=== PATIENT | female | born 1980 | race American Indian/Alaskan Native ===

== ENCOUNTER 2020-01-23 09:45 | Observation (INO) | payer OTHER ==
[2020-01-23] MEDS ORDERED: ASPIRIN 325 MG TAB PO ONE (09:56)
[2020-01-23 10:49] LABS: Basophils % (Auto) 0.3 % (0.0-1.8); Eosinophils # (Auto) 0.3 K/mm3 (0.0-0.4); Eosinophils % (Auto) 3.3 % (0.0-4.3); Hematocrit 38.6 % (30.3-42.9); Hemoglobin 12.9 gm/dl (10.1-14.3); Lymphocytes # (Auto) 0.8 K/mm3 (1.2-5.4); Lymphocytes % (Auto) 9.2 % (13.4-35.0); Mean Corpuscular HGB Conc 33 % (30-34); Mean Corpuscular Volume 88 fl (79-97); Monocytes # (Auto) 0.7 K/mm3 (0.0-0.8); Monocytes % (Auto) 8.3 % (0.0-7.3); Platelet Count 210 K/mm3 (140-440); Red Blood Count 4.41 M/mm3 (3.65-5.03); Red Cell Distribution Width 16.1 % (13.2-15.2)
[2020-01-23] MEDS ORDERED: ONDANSETRON 4 MG/2 ML INJ IV ONE (10:52)
[2020-01-23] MEDS ORDERED: NITROGLYCERIN 2% OINT 1 GM TP ONE (10:52)
[2020-01-23] MEDS ORDERED: MORPHINE 4 MG/1 ML INJ IV ONE (10:52)
--- NOTE | 2020-01-23 10:58 | Emergency Department Report ---
HPI - General Chief Complaint: Chest Pain Time Seen by Provider: 01/23/20 10:42 - HPI HPI: Room 26 The patient is a 39-year-old female present with a chief complaint of chest pain. The patient states she developed bilateral upper extremity numbness and then tightness in her chest. The patient states her tightness is associated with shortness of breath but she denies nausea/vomiting or diaphoresis. Patient currently gives her chest pain a score of 5/10. Patient admits to cocaine use approximately 6 hours ago. Patient states she's never had a heart cath ED Past Medical Hx - Past Medical History Previous Medical History?: Yes Hx Seizures: Yes Additional medical history: fibroids - Surgical History Past Surgical History?: Yes Additional Surgical History: ectopic - Family History Family history: no significant - Social History Smoking Status: Never Smoker Substance Use Type: Alcohol (Occasional), Cocaine - Medications Home Medications: Home Medications Medication Instructions Recorded Confirmed Last Taken Type Ibuprofen [Motrin] 800 mg PO Q8H PRN #20 tablet 02/23/14 Unknown Rx ED Review of Systems ROS: Stated complaint: SOB/CP Other details as noted in HPI Constitutional: diaphoresis Eyes: denies: eye pain ENT: denies: throat pain Respiratory: shortness of breath Cardiovascular: chest pain Endocrine: no symptoms reported Gastrointestinal: denies: nausea, vomiting Genitourinary: denies: dysuria Musculoskeletal: denies: back pain Neurological: denies: headache Physical Exam - Physical Exam Vital Signs: Vital Signs 01/23/20 09:55 Temperature 97.6 F Pulse Rate 85 Respiratory 18 Rate Blood Pressure 151/91 [Right] O2 Sat by Pulse 96 Oximetry Physical Exam: GENERAL: The patient is well-developed well-nourished female lying on stretcher not appearing to be in acute distress. [] HEENT: Normocephalic. Atraumatic. Extraocular motions are intact. Patient has moist mucous membranes. NECK: Supple. Trachea midline CHEST/LUNGS: Clear to auscultation. There is no respiratory distress noted. HEART/CARDIOVASCULAR: Regular. There is no tachycardia. There is no gallop rub or murmur. ABDOMEN: Abdomen is soft, nontender. Patient has normal bowel sounds. There is no abdominal distention. SKIN: There is no rash. There is no edema. There is no diaphoresis. NEURO: The patient is awake, alert, and oriented. The patient is cooperative. The patient has normal speech MUSCULOSKELETAL: There is no evidence of acute injury. ED Course Vital Signs 01/23/20 09:55 Temperature 97.6 F Pulse Rate 85 Respiratory 18 Rate Blood Pressure 151/91 [Right] O2 Sat by Pulse 96 Oximetry ED Medical Decision Making - Lab Data Result diagrams: 01/23/20 10:31 01/23/20 10:31 - EKG Data -: EKG Interpreted by Me EKG shows normal: sinus rhythm Rate: normal - EKG Data When compared to previous EKG there are: previous EKG unavailable Interpretation: nonspecific ST-T wave ginny (T wave inversions in leads III, aVF, V3) - Radiology Data Radiology results: report reviewed (Chest x-ray), image reviewed (Chest x-ray) interpreted by me: Chest x-ray-no focal infiltrates, no pneumothorax [facility] [address] [place] [address] XRay Report Signed Patient: LIANNE SILVERMAN MR# : [id number] : 1980 Acct:[id number] Age/Sex: 39 / F ADM Date: 01/23/20 Loc: ED Attending Dr: Ordering Physician: MARSHA SANTIAGO MD Date of Service: 01/23/20 Procedure(s): XR chest routine 2V Accession Number(s): [id number] cc: MARSHA SANTIAGO MD Fluoro Time In Minutes: CHEST 2 VIEWS INDICATION / CLINICAL INFORMATION: Chest Pain. COMPARISON: One view of the chest from 02/23/2014. FINDINGS: SUPPORT DEVICES: None. HEART / MEDIASTINUM: No significant abnormality. LUNGS / PLEURA: No significant pulmonary or pleural abnormality. No pneumothorax. ADDITIONAL FINDINGS: No significant additional findings. IMPRESSION: 1. No acute abnormality of the chest. Signer Name: Berry Ramos MD Signed: 01/23/2020 10:59 AM Workstation Name: [id number] Transcribed By: [place] Dictated By: Berry Ramos MD Electronically Authenticated By: Berry Ramos MD Signed Date/Time: 01/23/20 1059 DD/ 1058 TD/TT: - Differential Diagnosis ACS, pericarditis, GERD Critical care attestation.: If time is entered above; I have spent that time in minutes in the direct care of this critically ill patient, excluding procedure time. ED Disposition Clinical Impression: Chest pain, Cocaine abuse Disposition: DC09 OP ADMIT IP TO THIS HOSP Is pt being admited?: Yes Does the pt Need Aspirin: Yes Condition: Fair Instructions: Chest Pain (ED) Time of Disposition: 11:11 (Hospitalist paged)
--- NOTE | 2020-01-23 11:03 | XRay Report ---
CHEST 2 VIEWS INDICATION / CLINICAL INFORMATION: Chest Pain. COMPARISON: One view of the chest from 02/23/2014. FINDINGS: SUPPORT DEVICES: None. HEART / MEDIASTINUM: No significant abnormality. LUNGS / PLEURA: No significant pulmonary or pleural abnormality. No pneumothorax. ADDITIONAL FINDINGS: No significant additional findings. IMPRESSION: 1. No acute abnormality of the chest. Signer Name: Berry Ramos MD Signed: 01/23/2020 10:59 AM Workstation Name: [id number]
[2020-01-23 11:04] LABS: BUN/Creatinine Ratio 6; Blood Urea Nitrogen 4 mg/dL (7-17); Calcium 9.5 mg/dL (8.4-10.2); Hemolysis Index 11
[2020-01-23] MEDS ORDERED: ONDANSETRON 4 MG/2 ML INJ IV PRN (11:28)
[2020-01-23] MEDS ORDERED: NITROGLYCERIN 0.4 MG TAB SUBL SL PRN (11:28)
[2020-01-23] MEDS ORDERED: ACETAMINOPHEN 325 MG TAB PO PRN (11:28)
[2020-01-23] MEDS ORDERED: NALOXONE 0.4 MG/1 ML INJ IV PRN (11:28)
[2020-01-23] MEDS ORDERED: ALBUTEROL 2.5 MG/3 ML NEBU IH PRN (11:28)
--- NOTE | 2020-01-23 11:28 | History and Physical Report ---
History of Present Illness Date of examination: 01/23/20 Date of admission: 01/23/20 Chief complaint: Seizure, chest pain History of present illness: Patient is a 39-year-old female with no significant past medical history except for recurrent seizures. Who presents to the ED with complaint of chest pain that started following use of cocaine. Patient also reports that she has been having a seizure a week for the last 3 weeks has not followed with any physician unsure why she has not. On arrival to the hospital she she was noted or reported to have bilateral upper extremity paresthesias. She continues to have this intermittent jerking episode. Almost fidgety nature. She denies any blurry vision bowel or urinary incontinence. And no injury to the tongue or oral cavity. Past History Past Medical History: other (Seizures) Past Surgical History: No surgical history Social history: other (Cocaine use) Family history: no significant family history Medications and Allergies Allergies Allergy/AdvReac Type Severity Reaction Status Date / Time No Known Allergies Allergy Unverified 02/23/14 10:18 Home Medications Medication Instructions Recorded Confirmed Last Taken Type Iron,Carbonyl [Iron Chews] 65 mg PO QDAY 01/23/20 01/23/20 Unknown History Review of Systems All systems: negative Cardiovascular: chest pain, no orthopnea, no palpitations, no rapid/irregular heart beat, no edema Respiratory: no cough with sputum, no hemoptysis, no shortness of breath, no dyspnea on exertion Neurological: parathesias, numbness Exam - Physical Exam Narrative exam: VITAL SIGNS: Reviewed. GENERAL: The patient appears normally developed, fidgety vital signs as documented. HEAD: No signs of head trauma. EYES: Pupils are equal. Extraocular motions intact. EARS: Hearing grossly intact. MOUTH: Oropharynx is normal. NECK: No adenopathy, no JVD. CHEST: Chest with clear breath sounds bilaterally. No wheezes, rales, or rhonchi. CARDIAC: Regular rate and rhythm. S1 and S2, without murmurs, gallops, or rubs. VASCULAR: No Edema. Peripheral pulses normal and equal in all extremities. ABDOMEN: Soft, non tender and non distended. No rebound or guarding, and no masses palpated. Bowel Sounds normal. MUSCULOSKELETAL: Good range of motion of all major joints. Extremities without clubbing, cyanosis or edema. NEUROLOGIC EXAM: Alert and oriented x 3 disorganized upper extremity tremors. No focal sensory or strength deficits. Speech normal. Follows commands. PSYCHIATRIC: Mood normal. SKIN: detail exam as documented in skin assessment - Constitutional Vitals: Temp Pulse Resp BP Pulse Ox 98.4 F 105 H 18 130/99 96 01/23/20 10:53 01/23/20 11:10 01/23/20 10:52 01/23/20 11:10 01/23/20 10:52 HEART Score - HEART Score Troponin: Troponin T < 0.010 ng/mL (0.00-0.029) 01/23/20 10:31 Results - Labs CBC & Chem 7: 01/23/20 10:31 01/23/20 10:31 Labs: Laboratory Last Values WBC 8.7 K/mm3 (4.5-11.0) 01/23/20 10:31 RBC 4.41 M/mm3 (3.65-5.03) 01/23/20 10:31 Hgb 12.9 gm/dl (10.1-14.3) 01/23/20 10:31 Hct 38.6 % (30.3-42.9) 01/23/20 10:31 MCV 88 fl (79-97) 01/23/20 10:31 MCH 29 pg (28-32) 01/23/20 10:31 MCHC 33 % (30-34) 01/23/20 10:31 RDW 16.1 % (13.2-15.2) H 01/23/20 10:31 Plt Count 210 K/mm3 (140-440) 01/23/20 10:31 Lymph % (Auto) 9.2 % (13.4-35.0) L 01/23/20 10:31 [place] % (Auto) 8.3 % (0.0-7.3) H 01/23/20 10:31 Eos % (Auto) 3.3 % (0.0-4.3) 01/23/20 10:31 Baso % (Auto) 0.3 % (0.0-1.8) 01/23/20 10:31 Lymph # 0.8 K/mm3 (1.2-5.4) L 01/23/20 10:31 [place] # 0.7 K/mm3 (0.0-0.8) 05/15/20 10:31 Eos # 0.3 K/mm3 (0.0-0.4) 01/23/20 10:31 Baso # 0.0 K/mm3 (0.0-0.1) 01/23/20 10:31 Seg Neutrophils % 78.9 % (40.0-70.0) H 01/23/20 10:31 Seg Neutrophils # 6.8 K/mm3 (1.8-7.7) 01/23/20 10:31 Sodium 137 mmol/L (137-145) 01/23/20 10:31 Potassium 3.6 mmol/L (3.6-5.0) 01/23/20 10:31 Chloride 99.6 mmol/L (98-107) 01/23/20 10:31 Carbon Dioxide 23 mmol/L (22-30) 01/23/20 10:31 Anion Gap 18 mmol/L 01/23/20 10:31 BUN 4 mg/dL (7-17) L 01/23/20 10:31 Creatinine 0.7 mg/dL (0.7-1.2) 01/23/20 10:31 Estimated GFR > 60 ml/min 01/23/20 10:31 BUN/Creatinine Ratio 6 % 01/23/20 10:31 Glucose 123 mg/dL (65-100) H 01/23/20 10:31 Calcium 9.5 mg/dL (8.4-10.2) 01/23/20 10:31 Troponin T < 0.010 ng/mL (0.00-0.029) 01/23/20 10:31 Ham/IV: IV Catheter Type [Left INT / Saline Lock Antecubital] Assessment and Plan Assessment and plan: Patient is a 39-year-old female with no significant past medical history except for recurrent seizures. Who presents to the ED with complaint of chest pain that started following use of cocaine. Patient also reports that she has been having a seizure a week for the last 3 weeks has not followed with any physician unsure why she has not. On arrival to the hospital she she was noted or reported to have bilateral upper extremity paresthesias. She continues to have this intermittent jerking episode. Almost fidgety nature. She denies any blurry vision bowel or urinary incontinence. And no injury to the tongue or oral cavity. Atypical chest pain likely secondary to substance abuse Substance abuse prefers cocaine Seizure disorder with no postictal state Bilateral upper extremity paresthesias now resolved Mild rhabdomyolysis secondary to seizure Plan Admit to telemetry Obtain cardiology and neurology consult CT of the head Seizure precautions Ativan as needed for seizure DVT and GI prophylaxis Extensive counseling provided to the patient on need to quit substance abuse 50 minutes spent on counseling patient verbalized understanding. Anticipate discharge in a.m. if remains stable Advance Directives: Yes Plan of care discussed with patient/family: Yes
--- NOTE | 2020-01-23 13:02 | Consultation ---
History of Present Illness Consult date: 01/23/20 Consult reason: chest pain History of present illness: This is a 39-year old woman with no prior cardiac history who presents to the emergency department with chest pain. Patient reports chest pain following the use of cocaine. Currently, chest pain free. She denies unusual shortness of breath. Laboratory study shows normal troponin level. Chest x-ray is benign. ECG is sinus rhythm with non-specific T abnormalities. Medications and Allergies Allergies Allergy/AdvReac Type Severity Reaction Status Date / Time No Known Allergies Allergy Unverified 02/23/14 10:18 Home Medications Medication Instructions Recorded Confirmed Last Taken Type Ibuprofen [Motrin] 800 mg PO Q8H PRN #20 tablet 02/23/14 Unknown Rx Active Meds: Active Medications Acetaminophen (Tylenol) 650 mg PO Q4H PRN PRN Reason: Pain MILD(1-3)/Fever >100.5/GONZALES Albuterol (Proventil) 2.5 mg IH Q4HRT PRN PRN Reason: Shortness Of Breath Aspirin (Baby Aspirin) 81 mg PO QDAY [facility] Atorvastatin Calcium (Lipitor) 40 mg PO QHS [facility] Naloxone HCl (Naloxone) 0.1 mg IV Q2MIN PRN PRN Reason: Res Rate </= 8 or 02 SAT < 92% Nitroglycerin (Nitrostat) 0.4 mg SL Q5M PRN PRN Reason: Chest Pain Ondansetron HCl (Zofran) 4 mg IV Q4H PRN PRN Reason: Nausea And Vomiting Sodium Chloride (Sodium Chloride Flush Syringe 10 Ml) 10 ml IV BID [facility] Sodium Chloride (Sodium Chloride Flush Syringe 10 Ml) 10 ml IV PRN PRN PRN Reason: LINE FLUSH Physical Examination Vital Signs Temp Pulse Resp BP Pulse Ox 97.6 F 85 18 151/91 96 01/23/20 09:55 01/23/20 09:55 01/23/20 09:55 01/23/20 09:55 01/23/20 09:55 General appearance: no acute distress HEENT: Positive: PERRL Cardiac: Positive: Reg Rate and Rhythm Results 01/23/20 10:31 01/23/20 10:31 CBC 01/23/20 Range/Units 10:31 WBC 8.7 (4.5-11.0) K/mm3 RBC 4.41 (3.65-5.03) M/mm3 Hgb 12.9 (10.1-14.3) gm/dl Hct 38.6 (30.3-42.9) % Plt Count 210 (140-440) K/mm3 Lymph # 0.8 L (1.2-5.4) K/mm3 [place] # 0.7 (0.0-0.8) K/mm3 Eos # 0.3 (0.0-0.4) K/mm3 Baso # 0.0 (0.0-0.1) K/mm3 Comprehensive Metabolic Panel 01/23/20 Range/Units 10:31 Sodium 137 (137-145) mmol/L Potassium 3.6 (3.6-5.0) mmol/L Chloride 99.6 (98-107) mmol/L Carbon Dioxide 23 (22-30) mmol/L BUN 4 L (7-17) mg/dL Creatinine 0.7 (0.7-1.2) mg/dL Glucose 123 H (65-100) mg/dL Calcium 9.5 (8.4-10.2) mg/dL Assessment and Plan - Patient Problems (1) Chest pain Current Visit: Yes Status: Acute
[2020-01-23] MEDS ORDERED: LORazepam 2 MG/ML VIAL IV PRN (13:16)
--- NOTE | 2020-01-23 17:45 | Cat Scan Report ---
CT head/brain wo con INDICATION / CLINICAL INFORMATION: 39 years Female; seizure. TECHNIQUE: Routine CT head without contrast. All CT scans at this location are performed using CT dos e reduction for ALARA by means of automated exposure control. COMPARISON: None. FINDINGS: BRAIN / INTRACRANIAL CONTENTS: No acute hemorrhage, mass effect, midline shift, hydrocephalus, or acu te, large territorial infarct. No chronic infarct or atrophy appreciated. No significant white matter abnormality. CRANIOCERVICAL JUNCTION: No significant abnormality. ORBITS: No significant abnormality of visualized orbits. SINUSES / MASTOIDS: There is a focal dehiscence of the lamina papyracea on the right, which may be re lated to prior trauma or could be congenital. Moderate opacification of the ethmoids noted on the rig ht and mild on the left. ADDITIONAL FINDINGS: Prominent soft tissue is seen in the roof the nasopharynx, presumably related to reactive adenoidal tissue. Please clinically correlate. IMPRESSION: 1. No focal mass, hemorrhage, hydrocephalus, or acute, large territorial infarct. Signer Name: Wolf Hair MD, III Signed: 01/23/2020 5:41 PM Workstation Name: [id number]
[2020-01-23 20:25] LABS: Creatine Kinase MB 1.5 ng/mL (0.0-4.0)
--- NOTE | 2020-01-24 02:35 | Consultation ---
History of Present Illness Consult date: 01/24/20 Reason for Consult: Seizure Chief complaint: Seizure History of present illness: Patient is a 39 y/o woman w/ a h/o seizures, uterine fibroids, and cocaine abuse. She presented on 01/23/20 w/ symptoms of chest tightness, and paresthesias on Rt. side. She states that she had used cocaine about 6 hours prior to symptom onset. She had seizures in childhood, and was on AEDs, however stopped taking AEDs as a teenager. She states that she has had one seizure per week for the last month. Seizures are described as nocturnal, occurring only during sleep. Patient wakes to find that she has lost bowel and bladder control during sleep, and has also bitten her tongue. She denies having any seizures while awake. Past History Past Medical History: other (Seizures) Past Surgical History: No surgical history Social history: other (Cocaine use) Family history: no significant family history Medications and Allergies Allergies Allergy/AdvReac Type Severity Reaction Status Date / Time iodine Allergy Unknown Verified 01/23/20 18:01 Home Medications Medication Instructions Recorded Confirmed Last Taken Type Iron,Carbonyl [Iron Chews] 65 mg PO QDAY 01/23/20 01/23/20 Unknown History Active Meds: Active Medications Acetaminophen (Tylenol) 650 mg PO Q4H PRN PRN Reason: Pain MILD(1-3)/Fever >100.5/GONZALES Albuterol (Proventil) 2.5 mg IH Q4HRT PRN PRN Reason: Shortness Of Breath Aspirin (Baby Aspirin) 81 mg PO QDAY [facility] Atorvastatin Calcium (Lipitor) 40 mg PO QHS [facility] Last Admin: 01/23/20 22:29 Dose: 40 mg Documented by: Lorazepam (Ativan) 2 mg IV Q4H PRN PRN Reason: Seizures Naloxone HCl (Naloxone) 0.1 mg IV Q2MIN PRN PRN Reason: Res Rate </= 8 or 02 SAT < 92% Nitroglycerin (Nitrostat) 0.4 mg SL Q5M PRN PRN Reason: Chest Pain Ondansetron HCl (Zofran) 4 mg IV Q4H PRN PRN Reason: Nausea And Vomiting Sodium Chloride (Sodium Chloride Flush Syringe 10 Ml) 10 ml IV BID [facility] Last Admin: 01/23/20 22:29 Dose: 10 ml Documented by: Sodium Chloride (Sodium Chloride Flush Syringe 10 Ml) 10 ml IV PRN PRN PRN Reason: LINE FLUSH Review of Systems All systems: negative Cardiovascular: chest pain Neurological: weakness, parathesias, seizures Physical Examination - Vital Signs Vital Signs: Vital Signs Temp Pulse Resp BP Pulse Ox 97.6 F 85 18 151/91 96 01/23/20 09:55 01/23/20 09:55 01/23/20 09:55 01/23/20 09:55 01/23/20 09:55 - Physical Exam Narrative exam: Patient is alert, awake, oriented x4, follows complex commands. No dysarthria or aphasia noted. EOMI, VFF, tongue midline, decreased on right to LT, no facial weakness noted. 3/5 in RUE/RLE, 5/5 in LUE/LLE. Decreased on right to light touch. Bilaterally intact to FTN and HTS. Exam limited due to telemedicine encounter. - Constitutional General appearance: comfortable - Level of Consciousness 1a. Level of Consciousness: alert/keenly responsive - LOC Questions 1b. LOC Questions: answers both correctly - LOC Command 1c. LOC Commands: performs tasks correctly - Best Gaze 2. Best Gaze: normal - Visual 3. Visual: no visual loss - Facial Palsy 4. Facial Palsy: normal symmetrical movement - Motor Arm 5a. Motor Arm Left: no drift 5b. Motor Arm Right: drift - Motor Leg 6a. Motor Leg Left: no drift 6b. Motor Leg Right: drift - Limb Ataxia 7. Limb Ataxia: absent - Sensory 8. Sensory: mild/moderate sensory loss - Best Language 9. Best Language: no aphasia - Dysarthria 10. Dysarthria: normal - Extinction and Inattention 11. Extinction/Inattention: no abnormality - Scoring Total Score: 3 Stroke Severity: Minor Stroke Results - Laboratory Findings CBC and BMP: 01/23/20 10:31 01/23/20 10:31 Abnormal Lab Findings: Abnormal Labs 01/23/20 01/23/20 01/23/20 10:31 10:31 12:57 RDW 16.1 H Lymph % (Auto) 9.2 L [place] % (Auto) 8.3 H Lymph # 0.8 L Seg Neutrophils % 78.9 H BUN 4 L Glucose 123 H Total Creatine Kinase 278 H 01/23/20 19:51 RDW Lymph % (Auto) [place] % (Auto) Lymph # Seg Neutrophils % BUN Glucose Total Creatine Kinase 232 H Assessment and Plan Patient is a 39 y/o woman w/ a h/o seizures, uterine fibroids, and cocaine abuse, who p/w chest tightness, Rt. sided weakness/numbness, and recent seizures. According to the patient's clinical findings, it is possible that she has had an ischemic stroke. Additionally, patient has likely had seizures recently, as she has a h/o seizures as a teenager, and now has recurrence of seizures during sleep, characterized as loss of bowel/bladder control and tongue biting during sleep. Etiology of stroke may be related to cocaine use. Plan: 1. Possible Stroke: - MRI brain: pending - CTA head/neck: pending. - CT head: no acute abnormality - Echo: EF 60-65%, LA size normal, bubble study not performed. - Cont. ASA - Cont. statin. LDL goal <70 - Telemetry monitoring while in house - PT/OT/ST - DVT Ppx: Recommend lovenox 2. Hypertension: - Recommend BP goal of <220/120 to allow for permissive HTN for first 24-48 hours. Can target normotension after that. 3. Seizures: - Recommend for patient to start keppra 750mg BID. Discussed risks/benefits of this medication, and patient agreed to taking this. - Discussed with patient regarding no driving until cleared by DMV/DPS. Patient understood and accepted this. - Further discussed seizure precautions. 4. Chest pain/tightness: - Likely in setting of cocaine use. - Cardiology following. - Will sign off, as I am not covering neurology service over the weekend. Please consult neurologist covering the service over the weekend for further neurologic monitoring and management. Thank you for allowing me to take part in the care of this patient. Tod Dugan MD Neurology This clinical encounter was provided via live telemedicine portal. Consultative service was provided for neurology to support local providers. The Acute Teleneurology team should be contacted with any neurologic worsening or clinical changes, new test results, or new patient history that is reported to or discovered by the local team following completion of the teleneurology consultation, specifically that which has the potential to impact the consultative recommendations. Patient/Family was informed the Neurology Consult would happen via TeleHealth consult by way of interactive audio and video telecommunications and consented to receiving care in this manner. Due to the potential for life-threatening deterioration due to underlying neurologic illness, and limited resources available for patient care, telemedicine was used as means of patient care. Telemedicine consultation is limited in the extent of physical exam that can be virtually provided. Time spent evaluating patient includes time for face to face visit via telemedicine, review of medical records, imaging studies and discussion of findings with providers, the patient and/or family.
[2020-01-24 05:31] LABS: Basophils % (Auto) 0.5 % (0.0-1.8); Eosinophils # (Auto) 0.5 K/mm3 (0.0-0.4); Eosinophils % (Auto) 7.3 % (0.0-4.3); Hematocrit 36.6 % (30.3-42.9); Hemoglobin 12.1 gm/dl (10.1-14.3); Lymphocytes # (Auto) 1.5 K/mm3 (1.2-5.4); Lymphocytes % (Auto) 23.9 % (13.4-35.0); Mean Corpuscular HGB Conc 33 % (30-34); Mean Corpuscular Volume 88 fl (79-97); Monocytes # (Auto) 0.6 K/mm3 (0.0-0.8); Monocytes % (Auto) 9.3 % (0.0-7.3); Platelet Count 196 K/mm3 (140-440); Red Blood Count 4.17 M/mm3 (3.65-5.03); Red Cell Distribution Width 15.9 % (13.2-15.2)
[2020-01-24 05:53] LABS: BUN/Creatinine Ratio 8; Blood Urea Nitrogen 6 mg/dL (7-17); Calcium 8.5 mg/dL (8.4-10.2); Hemolysis Index 62
[2020-01-24] MEDS ORDERED: ASPIRIN 81 MG TAB CHEW PO SCH (10:00)
[2020-01-24] MEDS ORDERED: levETIRAcetam 500 MG TAB PO SCH (10:00)
--- NOTE | 2020-01-24 10:06 | Progress Note ---
Assessment and Plan - Patient Problems (1) Atypical chest pain Current Visit: Yes Status: Acute Plan to address problem: Patient presented with atypical chest pain and nonspecific T wave changes on the ECG. Echocardiogram shows normal left ventricular systolic function. Recommend cessation of drug and substance abuse. We will order a predischarge exercise stress test. Subjective Date of service: 01/24/20 Interval history: Patient is comfortable, no cardiac complaints. Objective Vital Signs Temp Pulse Resp BP Pulse Ox 01/24/20 04:11 98.9 F 76 18 122/75 99 01/24/20 02:33 94 H 01/23/20 23:39 98.3 F 83 18 130/85 100 01/23/20 21:40 80 01/23/20 21:11 98.8 F 70 18 134/85 85 01/23/20 20:50 15 101/62 99 01/23/20 20:40 16 101/62 98 01/23/20 20:32 84 01/23/20 20:30 9 L 101/62 98 01/23/20 20:00 14 101/62 99 01/23/20 19:30 12 120/91 99 01/23/20 19:00 16 107/71 98 01/23/20 17:30 15 98 01/23/20 17:06 99 01/23/20 16:30 98 01/23/20 16:00 125/97 99 01/23/20 15:30 73 14 124/80 97 01/23/20 15:00 71 15 124/80 99 01/23/20 14:30 98 01/23/20 14:00 97 01/23/20 13:30 97 01/23/20 13:00 120/64 100 01/23/20 12:30 93 H 16 120/64 96 01/23/20 12:15 88 17 120/72 96 01/23/20 12:00 98 H 15 115/68 99 01/23/20 11:45 104 H 18 150/79 95 01/23/20 11:30 80 18 140/79 97 01/23/20 11:16 91 H 20 144/84 96 01/23/20 11:10 105 H 130/99 01/23/20 11:00 106 H 17 130/99 95 01/23/20 10:53 98.4 F 01/23/20 10:52 18 96 01/23/20 10:49 96 H 15 99 - Physical Examination General: No Apparent Distress HEENT: Positive: PERRL Neck: Positive: neck supple Cardiac: Positive: Reg Rate and Rhythm Lungs: Positive: Decreased Breath Sounds Neuro: Positive: Grossly Intact Abdomen: Positive: Soft Skin: Positive: Clear Extremities: Absent: edema - Labs and Meds Cardiac Enzymes 01/23/20 01/23/20 Range/Units 12:57 19:51 CK-MB (CK-2) 2.0 1.5 (0.0-4.0) ng/mL CBC 01/23/20 01/24/20 Range/Units 10:31 04:25 WBC 8.7 6.3 (4.5-11.0) K/mm3 RBC 4.41 4.17 (3.65-5.03) M/mm3 Hgb 12.9 12.1 (10.1-14.3) gm/dl Hct 38.6 36.6 (30.3-42.9) % Plt Count 210 196 (140-440) K/mm3 Lymph # 0.8 L 1.5 (1.2-5.4) K/mm3 [place] # 0.7 0.6 (0.0-0.8) K/mm3 Eos # 0.3 0.5 H (0.0-0.4) K/mm3 Baso # 0.0 0.0 (0.0-0.1) K/mm3 Comprehensive Metabolic Panel 01/23/20 01/24/20 Range/Units 10:31 04:25 Sodium 137 138 (137-145) mmol/L Potassium 3.6 3.9 (3.6-5.0) mmol/L Chloride 99.6 101.1 (98-107) mmol/L Carbon Dioxide 23 26 (22-30) mmol/L BUN 4 L 6 L (7-17) mg/dL Creatinine 0.7 0.8 (0.7-1.2) mg/dL Glucose 123 H 104 H (65-100) mg/dL Calcium 9.5 8.5 (8.4-10.2) mg/dL
[2020-01-24 10:15] VITALS: BP 129/71
--- NOTE | 2020-01-24 10:41 | Progress Note ---
Hospitalist Physical - Constitutional Vitals: Temp Pulse Resp BP Pulse Ox 98.3 F 85 18 129/71 95 01/24/20 07:39 01/24/20 08:00 01/24/20 07:39 01/24/20 07:39 01/24/20 07:39 General appearance: Present: no acute distress HEART Score - HEART Score Troponin: Troponin T < 0.010 ng/mL (0.00-0.029) 01/23/20 15:34 Results - Labs CBC & Chem 7: 01/24/20 04:25 01/24/20 04:25 Labs: Laboratory Last Values WBC 6.3 K/mm3 (4.5-11.0) 01/24/20 04:25 RBC 4.17 M/mm3 (3.65-5.03) 01/24/20 04:25 Hgb 12.1 gm/dl (10.1-14.3) 01/24/20 04:25 Hct 36.6 % (30.3-42.9) 01/24/20 04:25 MCV 88 fl (79-97) 01/24/20 04:25 MCH 29 pg (28-32) 01/24/20 04:25 MCHC 33 % (30-34) 01/24/20 04:25 RDW 15.9 % (13.2-15.2) H 01/24/20 04:25 Plt Count 196 K/mm3 (140-440) 01/24/20 04:25 Lymph % (Auto) 23.9 % (13.4-35.0) 01/24/20 04:25 Hale % (Auto) 9.3 % (0.0-7.3) H 01/24/20 04:25 Eos % (Auto) 7.3 % (0.0-4.3) H 01/24/20 04:25 Baso % (Auto) 0.5 % (0.0-1.8) 01/24/20 04:25 Lymph # 1.5 K/mm3 (1.2-5.4) 01/24/20 04:25 Hale # 0.6 K/mm3 (0.0-0.8) 01/24/20 04:25 Eos # 0.5 K/mm3 (0.0-0.4) H 01/24/20 04:25 Baso # 0.0 K/mm3 (0.0-0.1) 01/24/20 04:25 Seg Neutrophils % 59.0 % (40.0-70.0) 01/24/20 04:25 Seg Neutrophils # 3.7 K/mm3 (1.8-7.7) 01/24/20 04:25 Sodium 138 mmol/L (137-145) 01/24/20 04:25 Potassium 3.9 mmol/L (3.6-5.0) 01/24/20 04:25 Chloride 101.1 mmol/L (98-107) 01/24/20 04:25 Carbon Dioxide 26 mmol/L (22-30) 01/24/20 04:25 Anion Gap 15 mmol/L 01/24/20 04:25 BUN 6 mg/dL (7-17) L 01/24/20 04:25 Creatinine 0.8 mg/dL (0.7-1.2) 01/24/20 04:25 Estimated GFR > 60 ml/min 01/24/20 04:25 BUN/Creatinine Ratio 8 % 01/24/20 04:25 Glucose 104 mg/dL (65-100) H 01/24/20 04:25 Calcium 8.5 mg/dL (8.4-10.2) 01/24/20 04:25 Total Creatine Kinase 232 units/L (30-135) H 01/23/20 19:51 CK-MB (CK-2) 1.5 ng/mL (0.0-4.0) 01/23/20 19:51 CK-MB (CK-2) Rel Index 0.6 (0-4) 01/23/20 19:51 Troponin T < 0.010 ng/mL (0.00-0.029) 01/23/20 15:34 Nasal Screen MRSA (PCR) Negative (Negative) 01/24/20 Unknown - Diagnostic Impressions Diagnostic Impressions: Echocardiogram 01/23/20 11:31 Transthoracic Echocardiogram Indication: Chest pain BP: 120/64 HR: 65 Conclusions *Global left ventricular systolic function is normal. *The estimated ejection fraction is 60-65%. *Borderline, mild concentric left ventricular hypertrophy is observed. *There is trace of aortic regurgitation. *There is no significant mitral regurgitation. *There is trace tricuspid regurgitation. *There is borderline, mild pulmonary hypertension with PASP 29. Findings Left Ventricle: The left ventricular chamber size is normal. Mild concentric left ventricular hypertrophy is observed. Global left ventricular systolic function is normal. The estimated ejection fraction is 60-65%. Left Atrium: The left atrial chamber size is normal. Right Ventricle: The right ventricular cavity size is normal. The right ventricular global systolic function is normal. Right Atrium: The right atrial cavity size is normal. Aortic Valve: The aortic valve is trileaflet. There is trace of aortic regurgitation. There is no evidence of aortic stenosis. Mitral Valve: The mitral valve leaflets appear normal. There is no evidence of mitral regurgitation. There is no evidence of mitral stenosis. Tricuspid Valve: There is trace tricuspid regurgitation. The right ventricular systolic pressure is calculated at 29 mmHg. There is evidence of borderline pulmonary hypertension. Pulmonic Valve: There is trace pulmonic regurgitation. Pericardium: There is no pericardial effusion. Aorta: There is no dilatation of the ascending aorta. There is no dilatation of the aortic root. Venous: The inferior vena cava appears normal in size. Measurements Chambers 2D Name Value Normal Range IVSd (2D) 0.9 cm (0.6 - 1.1) LVPWd (2D) 0.86 cm (0.6 - 1.1) LVIDd (2D) 3.96 cm (3.7 - 5.6) LVIDs (2D) 2.37 cm (2 - 3.8) LV FS (2D) 40.21 % - EF Teichholz (2D) 71.48 % - Ao root diameter (2D) 2.63 cm (2 - 3.7) Volumes/Mass Name Value Normal Range LA ESV SP 4CH (A/L) 33.29 ml - LA ESV SP 2CH (A/L) 31.14 ml - LA ESV BP (A/L) 32.7 ml - LA ESV BP (A/L) index 19.7 ml/m2 - LA ESV SP 4CH (MOD) 31.66 ml - LA ESV SP 2CH (MOD) 28.91 ml - LA ESV BP (MOD) 30.61 ml - LA ESV BP (MOD) index 18.44 ml/m2 - Diastolic/Systolic Function Name Value Normal Range MV E-wave Vmax 1.05 m/sec - MV deceleration time 186.43 msec - MV A-wave Vmax 0.8 m/sec - MV E:A ratio 1.33 ratio - Aortic Valve Name Value Normal Range AV Vmax 1.36 m/sec - AV VTI 28.02 cm - AV peak gradient 7.38 mmHg - AV mean gradient 3.65 mmHg - LVOT diameter 1.77 cm - LVOT Vmax 1.27 m/sec - LVOT VTI 29.46 cm - LVOT peak gradient 6.46 mmHg - LVOT mean gradient 3.27 mmHg - SV LVOT 72.24 ml - BISHNU (continuity Vmax) 2.3 cm2 - BISHNU (continuity VTI) 2.58 cm2 - Tricuspid Valve Name Value Normal Range TR Vmax 2.53 m/sec - TR peak gradient 26 mmHg - RAP 3 mmHg - RVSP 29 mmHg - Pulmonic Valve/Qp:Qs Name Value Normal Range PV Vmax 0.95 m/sec - PV peak gradient 3.59 mmHg - NV end-diastolic Vmax 0.58 m/sec - PV acceleration time 140.82 msec - Ham/IV: Voiding Method Toilet IV Catheter Type [Left INT / Saline Lock Antecubital] Active Medications - Current Medications Current Medications: Generic Name Dose Route Start Last Admin Trade Name Freq PRN Reason Stop Dose Admin Acetaminophen 650 mg 01/23/20 11:28 Tylenol PO Q4H PRN Pain MILD(1-3)/Fever >100.5/GONZALES Albuterol 2.5 mg 01/23/20 11:28 Proventil IH Q4HRT PRN Shortness Of Breath Aspirin 81 mg 01/24/20 10:00 01/24/20 10:15 Baby Aspirin PO 81 mg QDAY EDGAR Administration Atorvastatin Calcium 40 mg 01/23/20 22:00 01/23/20 22:29 Lipitor PO 40 mg QHS EDGAR Administration Levetiracetam 750 mg 01/24/20 10:00 01/24/20 10:14 Keppra PO 750 mg BID EDGAR Administration Lorazepam 2 mg 01/23/20 13:16 Ativan IV Q4H PRN Seizures Naloxone HCl 0.1 mg 01/23/20 11:28 Naloxone IV Q2MIN PRN Res Rate </= 8 or 02 SAT < 92% Nitroglycerin 0.4 mg 01/23/20 11:28 Nitrostat SL Q5M PRN Chest Pain Ondansetron HCl 4 mg 01/23/20 11:28 Zofran IV Q4H PRN Nausea And Vomiting Sodium Chloride 10 ml 01/23/20 22:00 01/24/20 10:15 Sodium Chloride Flush Syringe 10 Ml IV 10 ml BID EDGAR Administration Sodium Chloride 10 ml 01/23/20 11:28 Sodium Chloride Flush Syringe 10 Ml IV PRN PRN LINE FLUSH
--- NOTE | 2020-01-24 10:50 | Discharge Summary ---
Providers - Providers Date of Admission: 01/23/20 11:13 Attending physician: JOHN GUY MD 01/23/20 Consult to Cardiac Rehabilitation [CONS] Routine Reason For Exam: Phase I 01/23/20 11:28 Consult to Cardiology [CONS] Routine Consulting Provider: ROSEANN WU Reason For Exam: CHEST PAIN, COCAIN 01/23/20 11:34 Consult to Physician [CONS] Routine Comment: Consulting Provider: GENNA NOLAN Physician Instructions: Reason For Exam: SEIZURE Primary care physician: [employer] Hospitalization Reason for admission: chest pain Condition: Stable Hospital course: Patient is a 39-year-old female with no significant past medical history except for recurrent seizures. Who presents to the ED with complaint of chest pain t hat started following use of cocaine. Patient also reports that she has been having a seizure a week for the last 3 weeks has not followed with any physician unsure why she has not. On arrival to the hospital she she was noted or reported to have bilateral upper extremity paresthesias. She continues to have this intermittent jerking episode. Almost fidgety nature. She denies any blurry vision bowel or urinary incontinence. And no injury to the tongue or oral cavity. Patient was seen by cardiology and underwent stress test after seizure disorder was resolved. Stress test was unremarkable. Patient was also counseled on substance abuse and he verbalized understanding. She is stable for discharge at this time Atypical chest pain likely secondary to substance abuse Substance abuse prefers cocaine Seizure disorder with no postictal state Bilateral upper extremity paresthesias now resolved Mild rhabdomyolysis secondary to seizure Disposition: DC-01 TO HOME OR SELFCARE Time spent for discharge: 35 mins Core Measure Documentation - Palliative Care Palliative Care/ Comfort Measures: Not Applicable - Core Measures Any of the following diagnoses?: none Exam - Physical Exam Narrative exam: VITAL SIGNS: Reviewed. GENERAL: The patient appears normally developed, fidgety vital signs as documented. HEAD: No signs of head trauma. EYES: Pupils are equal. Extraocular motions intact. EARS: Hearing grossly intact. MOUTH: Oropharynx is normal. NECK: No adenopathy, no JVD. CHEST: Chest with clear breath sounds bilaterally. No wheezes, rales, or rhonchi. CARDIAC: Regular rate and rhythm. S1 and S2, without murmurs, gallops, or rubs. VASCULAR: No Edema. Peripheral pulses normal and equal in all extremities. ABDOMEN: Soft, non tender and non distended. No rebound or guarding, and no masses palpated. Bowel Sounds normal. MUSCULOSKELETAL: Good range of motion of all major joints. Extremities without clubbing, cyanosis or edema. NEUROLOGIC EXAM: Alert and oriented x 3 disorganized upper extremity tremors. No focal sensory or strength deficits. Speech normal. Follows commands. PSYCHIATRIC: Mood normal. SKIN: detail exam as documented in skin assessment - Constitutional Vitals: Temp Pulse Resp BP Pulse Ox 98.3 F 85 18 129/71 95 01/24/20 07:39 01/24/20 08:00 01/24/20 07:39 01/24/20 07:39 01/24/20 07:39 Plan Activity: no driving until cleared by PCP (DUE TO SEIZURE AND ACCORDING TO [place] LAW), fall precautions Diet: low fat, low cholesterol Special Instructions: record daily weights Follow up with: PRIMARY CAREMD [Primary Care Provider] - 7 Days ROSEANN WU MD [Staff Physician] - 3 Days (MUST FOLLOW FOR STRESS TEST. NO STERNEOUS ACTIVITY TILL STRESS TEST IS DONE NO COCAIN) CARMEN BRYANT MD [Staff Physician] - 7 Days Forms: Discharge Signature Page Prescriptions: AtorvaSTATin [Lipitor] 40 mg PO QHS #30 tablet Aspirin [Aspirin BABY CHEW TAB] 81 mg PO QDAY #30 tab.chew levETIRAcetam [Keppra TAB] 750 mg PO BID #60 tablet
--- NOTE | 2020-01-24 13:35 | Magnetic Resonance Report ---
MR brain wo con INDICATION / CLINICAL INFORMATION: 39 years Female; right sided weakness/numbness. TECHNIQUE: Multiplanar, multisequence MR images of the brain were obtained. Some motion artifact COMPARISON: CT - 01/23/2020 FINDINGS: BRAIN / INTRACRANIAL CONTENTS: No acute hemorrhage, mass effect, midline shift, hydrocephalus, or acu te, large territorial infarct. No chronic infarct or atrophy. No significant white matter abnormality . CRANIOCERVICAL JUNCTION: No significant abnormality. VASCULAR FLOW-VOIDS: No significant abnormality. ORBITS: No significant abnormality of visualized orbits. SINUSES / MASTOIDS: There is moderate mucosal thickening in the ethmoids, maxillary antra, and to a l satnam degree, the sphenoid sinuses. ADDITIONAL FINDINGS: None. IMPRESSION: 1. No focal mass, hemorrhage, hydrocephalus, or acute ischemia. Signer Name: Wolf Hair MD, III Signed: 01/24/2020 1:31 PM Workstation Name: [id number]
== END 2020-01-24 17:22 | disposition home or self-care (01) ==
LOC: ED 09:45 → 4A 11:13
PROVIDERS: ADMIT Internal Medicine; ATTEND Internal Medicine
DX: R07.89 Other chest pain (principal); G40.909 Epilepsy, unspecified, not intractable, without status epilepticus; M62.82 Rhabdomyolysis; R20.2 Paresthesia of skin; F14.10 Cocaine abuse, uncomplicated; I10 Essential (primary) hypertension; Z79.899 Other long term (current) drug therapy; Z91.048 Other nonmedicinal substance allergy status
CPT/HCPCS: 36415; 70450; 70551; 71046; 80048; 82550; 82553; 84484; 85025; 93005; 93306; 96374; 96375; 99285; A9270; G0378; J2270; J2405; 87641

== ENCOUNTER 2020-04-06 19:46 | Emergency (ER) | payer SELFPAY ==
[2020-04-06 20:07] VITALS: BP 133/82
[2020-04-06] MEDS ORDERED: traMADol 50 MG TAB PO ONE (22:08)
--- NOTE | 2020-04-06 22:16 | Emergency Department Report ---
ED General Adult HPI - General Chief complaint: Extremity Injury, Lower Stated complaint: RIGHT KNEE PAIN AND NECK PAIN Time Seen by Provider: 04/06/20 22:07 Source: patient Mode of arrival: Ambulatory Limitations: No Limitations - History of Present Illness Initial comments: Patient 39-year-old female who presents for neck and knee pain patient has hist ory of arthralgia at the same location. She denies fall injury or trauma today. Pain is described as 4/10 aching exacerbated by movement prolonged sitting and stair climbing. She is she states subjective swelling. Patient states she works in [employer] standing 8 to 10 hours a day. Pain is relieved by offloading. Pain is exacerbated by prolonged work duties. Onset/Timin -: month(s) Location: neck, lower extremity Radiation: non-radiation Severity scale (0 -10): 5 Quality: aching Consistency: intermittent Improves with: rest Worsens with: movement Treatments Prior to Arrival: none - Related Data Home Medications Medication Instructions Recorded Confirmed Last Taken Iron,Carbonyl [Iron Chews] 65 mg PO QDAY 01/23/20 01/23/20 Unknown Previous Rx's Medication Instructions Recorded Last Taken Type Aspirin [Aspirin BABY CHEW TAB] 81 mg PO QDAY #30 tab.chew 01/24/20 Unknown Rx AtorvaSTATin [Lipitor] 40 mg PO QHS #30 tablet 01/24/20 Unknown Rx levETIRAcetam [Keppra TAB] 750 mg PO BID #60 tablet 01/24/20 Unknown Rx Acetaminophen [Acetaminophen TAB] 1,000 mg PO Q6HR PRN #30 tablet 04/06/20 Unknown Rx Capsaicin 0.075% [Zostrix Hp 1 applicatio TP TID #1 tube 04/06/20 Unknown Rx 0.075%] Allergies Allergy/AdvReac Type Severity Reaction Status Date / Time iodine Allergy Unknown Verified 01/23/20 18:01 ED Review of Systems ROS: Stated complaint: RIGHT KNEE PAIN AND NECK PAIN Other details as noted in HPI Constitutional: denies: chills, fever Eyes: denies: eye pain, eye discharge, vision change ENT: denies: ear pain, throat pain Respiratory: denies: cough, shortness of breath, wheezing Cardiovascular: denies: chest pain, palpitations Endocrine: no symptoms reported Gastrointestinal: denies: abdominal pain, nausea, diarrhea Genitourinary: denies: urgency, dysuria, discharge Musculoskeletal: arthralgia. denies: back pain, joint swelling Skin: denies: rash, lesions Neurological: denies: headache, weakness, paresthesias Psychiatric: denies: anxiety, depression Hematological/Lymphatic: denies: easy bleeding, easy bruising ED Past Medical Hx - Past Medical History Previous Medical History?: Yes Hx Seizures: Yes Additional medical history: fibroids. high cholestrol - Surgical History Past Surgical History?: Yes Additional Surgical History: ectopic - Social History Smoking Status: Never Smoker - Medications Home Medications: Home Medications Medication Instructions Recorded Confirmed Last Taken Type Iron,Carbonyl [Iron Chews] 65 mg PO QDAY 01/23/20 01/23/20 Unknown History Aspirin [Aspirin BABY CHEW TAB] 81 mg PO QDAY #30 tab.chew 01/24/20 Unknown Rx AtorvaSTATin [Lipitor] 40 mg PO QHS #30 tablet 01/24/20 Unknown Rx levETIRAcetam [Keppra TAB] 750 mg PO BID #60 tablet 01/24/20 Unknown Rx Acetaminophen [Acetaminophen TAB] 1,000 mg PO Q6HR PRN #30 tablet 04/06/20 Unknown Rx Capsaicin 0.075% [Zostrix Hp 1 applicatio TP TID #1 tube 04/06/20 Unknown Rx 0.075%] ED Physical Exam - General Limitations: No Limitations General appearance: alert, in no apparent distress - Head Head exam: Present: atraumatic, normocephalic - Eye Eye exam: Present: normal appearance - ENT ENT exam: Present: mucous membranes moist - Neck Neck exam: Present: normal inspection, full ROM. Absent: tenderness (rom intact and unrestricted ), meningismus, lymphadenopathy, thyromegaly - Expanded Neck Exam Expanded Neck exam: Absent: tenderness, midline deformity, anterior neck swelling, thyroid mass, carotid bruit - Respiratory Respiratory exam: Present: normal lung sounds bilaterally. Absent: respiratory distress, wheezes, stridor, chest wall tenderness - Cardiovascular Cardiovascular Exam: Present: regular rate, normal rhythm, normal heart sounds. Absent: systolic murmur, diastolic murmur, rubs, gallop - GI/Abdominal GI/Abdominal exam: Present: soft, normal bowel sounds. Absent: distended, tenderness, bruit, hernia - Rectal Rectal exam: Present: deferred - Extremities Exam Extremities exam: Present: normal inspection, full ROM, normal capillary refill. Absent: tenderness, pedal edema, joint swelling - Expanded Lower Extremity Exam Right Knee exam: Present: full ROM, pain w/ pronation/supination, full knee extension. Absent: tenderness, swelling, abrasion, laceration, ecchymosis, deformity, crepidus, dislocation, erythema, effusion, posterior draw sign Lower Leg exam: Present: full ROM. Absent: tenderness, swelling Ankle exam: Present: full ROM. Absent: tenderness, swelling Foot/Toe exam: Present: full ROM. Absent: tenderness, swelling Neuro vascular tendon exam: Absent: pulse deficit, motor deficit, sensory deficit, tendon deficit Gait: Positive: observed and normal - Back Exam Back exam: Present: normal inspection, full ROM. Absent: tenderness, CVA tenderness (R), CVA tenderness (L), vertebral tenderness - Neurological Exam Neurological exam: Present: alert, oriented X3, CN II-XII intact, normal gait, reflexes normal - Psychiatric Psychiatric exam: Present: normal affect, normal mood - Skin Skin exam: Present: warm, dry, intact, normal color. Absent: rash ED Course Vital Signs 04/06/20 20:04 Temperature 98.4 F Pulse Rate 67 Respiratory 18 Rate Blood Pressure 133/82 O2 Sat by Pulse 99 Oximetry ED Medical Decision Making - Medical Decision Making this is arthralgia , no injury plan: nsaids, analgesic balm moist heat, follow up with primary care doctor in 2-3 days. Critical care attestation.: If time is entered above; I have spent that time in minutes in the direct care of this critically ill patient, excluding procedure time. ED Disposition Clinical Impression: Arthralgia Qualifiers: Joint pain location: unspecified Qualified Code(s): M25.50 - Pain in unspecified joint Disposition: DC-01 TO HOME OR SELFCARE Is pt being admited?: No Does the pt Need Aspirin: No Condition: Stable Instructions: Arthralgia (ED), Knee Exercises (GEN) Prescriptions: Acetaminophen [Acetaminophen TAB] 1,000 mg PO Q6HR PRN #30 tablet PRN Reason: pain Capsaicin 0.075% [Zostrix Hp 0.075%] 1 applicatio TP TID #1 tube Referrals: PRIMARY CARE,MD [Primary Care Provider] - 3-5 Days Forms: Work/School Release Form(ED) Time of Disposition: 22:18
== END 2020-04-06 22:20 | disposition home or self-care (01) ==
LOC: ED 19:46
DX: M54.2 Cervicalgia (principal); M25.561 Pain in right knee; R56.9 Unspecified convulsions; Z98.890 Other specified postprocedural states; Z79.899 Other long term (current) drug therapy; Z88.8 Allergy status to other drugs, medicaments and biological substances
CPT/HCPCS: 99282

== ENCOUNTER 2022-02-15 15:46 | Emergency (ER) | payer SELFPAY ==
[2022-02-15 18:37] VITALS: BP 128/87
[2022-02-16] MEDS ORDERED: HYDROcodone/ACETAMINOPHEN 5-325 MG TAB PO STA (00:15)
--- NOTE | 2022-02-16 00:42 | Emergency Department Report ---
- General Chief complaint: Back Pain/Injury Stated complaint: SPIDER BITE Time Seen by Provider: 02/16/22 00:01 Source: patient Mode of arrival: Ambulatory Limitations: No Limitations - History of Present Illness Initial comments: 41-year-old female presents emergency department complaining of a painful bump to her left back which has been progressively worsening over the last 3 to 4days of a suspected insect bite etiology. Pain is dull and throbbing worse with palpation and range of motion and associated with fever sensations and occasional chills. No nausea, no vomiting, no bleeding, no wound discharge. She reports no shortness of breath, no chest pain no, no palpitations, no sweats. The wound is tender and worse with touching and certain positions. MD complaint: insect bite/sting, abscess/boil -: Gradual Tetanus Up to Date: yes Location: generalized Severity: moderate Quality: aching, dull Consistency: constant Improves with: none Worsens with: none Context: none Treatments Prior to Arrival: none - Related Data Home Medications Medication Instructions Recorded Confirmed Last Taken Iron,Carbonyl [Iron Chews] 65 mg PO QDAY 01/23/20 01/23/20 Unknown Previous Rx's Medication Instructions Recorded Last Taken Type Aspirin [Aspirin BABY CHEW TAB] 81 mg PO QDAY #30 tab.chew 01/24/20 Unknown Rx AtorvaSTATin [Lipitor] 40 mg PO QHS #30 tablet 01/24/20 Unknown Rx levETIRAcetam [Keppra TAB] 750 mg PO BID #60 tablet 01/24/20 Unknown Rx Acetaminophen [Acetaminophen TAB] 1,000 mg PO Q6HR PRN #30 tablet 04/06/20 Unknown Rx Capsaicin 0.075% [Zostrix Hp 1 applicatio TP TID #1 tube 04/06/20 Unknown Rx 0.075%] Ketorolac [Toradol] 10 mg PO Q6H PRN #15 tablet 02/16/22 Unknown Rx Sulfamethoxazole/Trimethoprim 1 each PO BID #20 tablet 02/16/22 Unknown Rx [Bactrim Ds] cephALEXin [Keflex] 500 mg PO Q6HR #40 capsule 02/16/22 Unknown Rx Allergies Allergy/AdvReac Type Severity Reaction Status Date / Time iodine Allergy Unknown Verified 01/23/20 18:01 Abscess Boil HPI - HPI Chief Complaint: Back Pain/Injury Stated Complaint: SPIDER BITE Time Seen by Provider: 02/16/22 00:01 Home Medications: Home Medications Medication Instructions Recorded Confirmed Last Taken Iron,Carbonyl [Iron Chews] 65 mg PO QDAY 01/23/20 01/23/20 Unknown Previous Rx's Medication Instructions Recorded Last Taken Type Aspirin [Aspirin BABY CHEW TAB] 81 mg PO QDAY #30 tab.chew 01/24/20 Unknown Rx AtorvaSTATin [Lipitor] 40 mg PO QHS #30 tablet 01/24/20 Unknown Rx levETIRAcetam [Keppra TAB] 750 mg PO BID #60 tablet 01/24/20 Unknown Rx Acetaminophen [Acetaminophen TAB] 1,000 mg PO Q6HR PRN #30 tablet 04/06/20 Unknown Rx Capsaicin 0.075% [Zostrix Hp 1 applicatio TP TID #1 tube 04/06/20 Unknown Rx 0.075%] Ketorolac [Toradol] 10 mg PO Q6H PRN #15 tablet 02/16/22 Unknown Rx Sulfamethoxazole/Trimethoprim 1 each PO BID #20 tablet 02/16/22 Unknown Rx [Bactrim Ds] cephALEXin [Keflex] 500 mg PO Q6HR #40 capsule 02/16/22 Unknown Rx Allergies/Adverse Reactions: Allergies Allergy/AdvReac Type Severity Reaction Status Date / Time iodine Allergy Unknown Verified 01/23/20 18:01 ED Review of Systems ROS: Stated complaint: SPIDER BITE Other details as noted in HPI Comment: All other systems reviewed and negative ED Past Medical Hx - Past Medical History Previous Medical History?: Yes Hx Seizures: Yes Additional medical history: fibroids. high cholestrol - Surgical History Additional Surgical History: ectopic - Social History Smoking Status: Never Smoker - Medications Home Medications: Home Medications Medication Instructions Recorded Confirmed Last Taken Type Iron,Carbonyl [Iron Chews] 65 mg PO QDAY 01/23/20 01/23/20 Unknown History Aspirin [Aspirin BABY CHEW TAB] 81 mg PO QDAY #30 tab.chew 01/24/20 Unknown Rx AtorvaSTATin [Lipitor] 40 mg PO QHS #30 tablet 01/24/20 Unknown Rx levETIRAcetam [Keppra TAB] 750 mg PO BID #60 tablet 01/24/20 Unknown Rx Acetaminophen [Acetaminophen TAB] 1,000 mg PO Q6HR PRN #30 tablet 04/06/20 Unknown Rx Capsaicin 0.075% [Zostrix Hp 1 applicatio TP TID #1 tube 04/06/20 Unknown Rx 0.075%] Ketorolac [Toradol] 10 mg PO Q6H PRN #15 tablet 02/16/22 Unknown Rx Sulfamethoxazole/Trimethoprim 1 each PO BID #20 tablet 02/16/22 Unknown Rx [Bactrim Ds] cephALEXin [Keflex] 500 mg PO Q6HR #40 capsule 02/16/22 Unknown Rx ED Physical Exam - General Limitations: No Limitations General appearance: alert, in no apparent distress - Head Head exam: Present: atraumatic, normocephalic - Eye Eye exam: Present: normal appearance, PERRL, EOMI Pupils: Present: normal accommodation - ENT ENT exam: Present: normal exam, normal orophraynx, mucous membranes moist, TM's normal bilaterally - Neck Neck exam: Present: normal inspection, full ROM - Respiratory Respiratory exam: Present: normal lung sounds bilaterally. Absent: respiratory distress - Cardiovascular Cardiovascular Exam: Present: regular rate, normal rhythm. Absent: systolic murmur, diastolic murmur, rubs, gallop - GI/Abdominal GI/Abdominal exam: Present: soft, normal bowel sounds - Extremities Exam Extremities exam: Present: normal inspection - Back Exam Back exam: Present: normal inspection, tenderness (Tenderness to the left latissimus dorsi region at the back with some redness and induration noted no fluctuance. No lymphangitis is noted. No lymphadenopathy.) - Neurological Exam Neurological exam: Present: alert, oriented X3, CN II-XII intact, normal gait - Psychiatric Psychiatric exam: Present: normal affect, normal mood - Skin Skin exam: Present: warm, dry, intact, erythema. Absent: rash ED Course Vital Signs 02/15/22 02/16/22 18:31 00:34 Temperature 98.9 F Pulse Rate 69 Respiratory 18 18 Rate Blood Pressure 128/87 O2 Sat by Pulse 99 Oximetry Critical care attestation.: If time is entered above; I have spent that time in minutes in the direct care of this critically ill patient, excluding procedure time. ED Disposition Clinical Impression: Induration of skin, Insect bite Disposition: HOME / SELF CARE / HOMELESS Is pt being admited?: No Does the pt Need Aspirin: No Condition: Stable Instructions: Insect Bite, Adult Additional Instructions: You were seen by emergency department for bite to use skin or suspected insect bite at this present time no invasive intervention is needed at this present time. Wound is indurated red and tender but no evidence of any fluctuant is present so it is best to initiate antibacterial therapy along with warm compress therapy and reevaluate the wound in 48 to 72 hours at which point in time if it is not beginning to to resolve he may meet the criteria for incision and drainage Prescriptions: Sulfamethoxazole/Trimethoprim [Bactrim Ds] 1 each PO BID #20 tablet cephALEXin [Keflex] 500 mg PO Q6HR #40 capsule Ketorolac [Toradol] 10 mg PO Q6H PRN #15 tablet PRN Reason: Pain Referrals: [facility] [Provider Group] - 3-5 Days Forms: Work/School Release Form(ED)
== END 2022-02-16 01:07 | disposition home or self-care (01) ==
LOC: ED 15:46
DX: T63.301A Toxic effect of unspecified spider venom, accidental (unintentional), initial encounter (principal); R23.4 Changes in skin texture; R56.9 Unspecified convulsions; D21.9 Benign neoplasm of connective and other soft tissue, unspecified; E78.00 Pure hypercholesterolemia, unspecified; Z98.890 Other specified postprocedural states; Z91.041 Radiographic dye allergy status; Y92.89 Other specified places as the place of occurrence of the external cause
CPT/HCPCS: 99282